=== PATIENT | male | born 1965 | race Caucasian/White ===

== ENCOUNTER 2017-04-11 03:23 | Emergency (ER) | payer MEDICARE, MEDICAID ==
--- NOTE | 2017-04-11 04:26 | ER Document Report ---
ED Extremity Problem, Upper - General Chief Complaint: Shoulder Pain Stated Complaint: BACK/SHOULDER PAIN Time Seen by Provider: 04/11/17 04:20 Mode of Arrival: Ambulatory Information source: Patient Notes: 51-year-old male presents to ED for pain in his left shoulder is chronic but has been getting worse for the last month. He states he has a history of shoulder surgery for a torn bicep and rotator cuff he also had cervical fusion 3. She has been on pain management for years who was kicked out because he had a positive marijuana test. States she is scheduled for an MRI of his shoulder and a nerve conduction study and was told that these were all counts were because he has a positive marijuana test. TRAVEL OUTSIDE OF THE [place] IN LAST 30 DAYS: No - HPI Patient complains to provider of: Left, Shoulder Onset: Other - Chronic worse for the last month Recent injury: No Quality of pain: Sharp, Stabbing Severity of pain: Moderate Pain Level: 4 Associated symptoms: Tingling, Other - The pain Exacerbated by: Movement Relieved by: Nothing Similar symptoms previously: Yes Recently seen / treated by doctor: Yes - Related Data Allergies/Adverse Reactions: No Known Allergies Allergy (Unverified 01/28/12 11:43) Past Medical History - General Information source: Patient - Social History Smoking Status: Current Every Day Smoker Cigarette use (# per day): Yes - Pack and half a day Chew tobacco use (# tins/day): No Smoking Education Provided: Yes Frequency of alcohol use: Occasional Drug Abuse: Marijuana Lives with: Spouse/Significant other Family History: Arthritis, CAD, COPD, DM, Hyperlipidemia, Hypertension, Malignancy Patient has suicidal ideation: No Patient has homicidal ideation: No - Past Medical History Cardiac Medical History: Reports: Hx Hypercholesterolemia, Hx Hypertension Pulmonary Medical History: Reports: Hx Asthma, Hx COPD EENT Medical History: Reports: None Neurological Medical History: Reports: None Endocrine Medical History: Reports: None Renal/ Medical History: Reports: None Malignancy Medical History: Reports None GI Medical History: Reports: Hx Gastroesophageal Reflux Disease Musculoskeltal Medical History: Reports Hx Arthritis, Reports Hx Musculoskeletal Trauma Skin Medical History: Reports None Psychiatric Medical History: Reports: Hx Anxiety, Hx Bipolar Disorder, Hx Depression Traumatic Medical History: Reports: Hx Fractures - Tib-fib and left thumb Infectious Medical History: Reports: None Past Surgical History: Reports: Hx Orthopedic Surgery - left wrist surgery, left knee torn miniscus, rotator cuff left and bicep te - Immunizations Immunizations up to date: No Hx Diphtheria, Pertussis, Tetanus Vaccination: Yes - 2011 Review of Systems - Review of Systems Constitutional: No symptoms reported EENT: No symptoms reported Cardiovascular: No symptoms reported Respiratory: No symptoms reported Gastrointestinal: No symptoms reported Genitourinary: No symptoms reported Male Genitourinary: No symptoms reported Musculoskeletal: Other - Left shoulder pain down to bicep Skin: No symptoms reported Hematologic/Lymphatic: No symptoms reported Neurological/Psychological: No symptoms reported -: Yes All other systems reviewed and negative Physical Exam - Vital signs Vitals: Temp Pulse Resp BP Pulse Ox 98.3 F 51 L 14 114/69 99 04/11/17 03:26 04/11/17 03:26 04/11/17 03:26 04/11/17 03:26 04/11/17 03:26 Interpretation: Normal - General General appearance: Appears well, Alert - HEENT Head: Normocephalic, Atraumatic Eyes: Normal Pupils: PERRL - Respiratory Respiratory status: No respiratory distress Chest status: Nontender Breath sounds: Normal Chest palpation: Normal - Cardiovascular Rhythm: Regular Heart sounds: Normal auscultation Murmur: No - Abdominal Inspection: Normal Distension: No distension Bowel sounds: Normal Tenderness: Nontender Organomegaly: No organomegaly - Back Back: Normal, Nontender - Extremities General upper extremity: Normal inspection, Normal color, Normal temperature General lower extremity: Normal inspection, Nontender, Normal color, Normal ROM , Normal temperature, Normal weight bearing. No: Lex's sign Shoulder: Tender, Limited ROM - Due to pain. No: Abrasion, Deformity, Dislocation, Ecchymosis, Instability, Laceration - Neurological Neuro grossly intact: Yes Cognition: Normal Orientation: AAOx4 [place] Coma Scale Eye Opening: Spontaneous [place] Coma Scale Verbal: Oriented [place] Coma Scale Motor: Obeys Commands [place] Coma Scale Total: 15 Speech: Normal Motor strength normal: LUE, RUE, LLE, RLE Sensory: Normal - Psychological Associated symptoms: Normal affect, Normal mood - Skin Skin Temperature: Warm Skin Moisture: Dry Skin Color: Normal Course - Re-evaluation Re-evalutation: 04/11/17 04:50 Discussed with patient the fact that we do not do chronic pain management, we do not prescribe narcotics for chronic pain, use of anti-inflammatories and use of ultram. - Vital Signs Vital signs: Temp Pulse Resp BP Pulse Ox 98.3 F 51 L 14 114/69 99 04/11/17 03:26 04/11/17 03:26 04/11/17 03:26 04/11/17 03:04/11/17 03:26 Discharge - Discharge Clinical Impression: Shoulder pain, left Qualifiers: Chronicity: chronic Qualified Code(s): M25.512 - Pain in left shoulder Instructions: Family Physicians / Practices Additional Instructions: You were seen today for shoulder pain in your left shoulder. You stated this is chronic pain that has been getting worse for a month. A local primary doctor and a orthopedic doctor. Chronic Pain Control Stress, inactivity, and depression make pain more severe regardless of the cause of the pain. Stress and poor physical condition can cause pain such as headaches and backache. Relaxation: Rest in a quiet place with your eyes closed for 20 minutes twice daily. Concentrate on a pleasant image, or simply "feel" your breathing. Clear your mind. Stress management: Deal with your "stressors." Either take action, or eliminate the stressor from your life. Don't let things hang over you. Accept those things you can't change. Nutrition: Eat small, balanced meals -- don't skip, don't overeat. Meals should be high-carbohydrate, low-sugar, low-fat. Exercise: Exercise helps painful conditions and eases stress. Get 30 minutes of moderate exercise, five days a week. Do an activity that does not flare your pain. Precautions: Pain which continues to disrupt daily activities, or which changes in nature, requires a medical evaluation. Pain Clinic referral is available. We do not manage chronic pain in the Emergency Department. We will try to appropriately help you through an acute flare of your chronic painful condition , but for on-going chronic pain that does not improve, you will need to see your private doctor or ornamental painter. We do not provide repeated medication management of chronic painful conditions. If you wish, we can provide the name of local pain management physicians. Anti-Inflammatory Medication You have received a prescription for an antiinflammatory agent. This is an excellent, safe drug for pain control. In addition, it has potent antiinflammatory effects which are beneficial, especially in the treatment of injuries, arthritis, or tendonitis. It's best to take this medicine with food. Persons with ulcer disease or allergy to aspirin should notify their physician of this before taking this drug. Take the medication exactly as prescribed. Don't take additional doses unless instructed to do so by your doctor. If you develop wheezing, shortness of breath, hives, faintness, stomach pain, vomiting, or dark black stools, return for re-evaluation at once. Ultram Ultram is an excellent drug for pain relief. It is not a narcotic, but it works in a similar way. Ultram can take up to two hours for full effect. Although not addicting, Ultram is best avoided in patients with a history of drug abuse. Ultram should not be used with alcohol, sleeping pills, or narcotics. If you're prone to seizures, Ultram can make you more likely to have a seizure. Ultram can be hazardous when combined with MAO-inhibitor antidepressants (such as Nardil or Parnate). Be sure your doctor is aware of all medicines you are taking. Persons with severe liver or kidney disease should increase the time between doses of Ultram. Discuss this with your doctor if you're uncertain. Side effects of Ultram can include dizziness, nausea, constipation, sleepiness, and itching. (These side effects are also seen with narcotic pain medicines.) Please call your doctor if you have other disturbing effects. FOLLOW-UP CARE: If you have been referred to a physician for follow-up care, call the physician s office for an appointment as you were instructed or within the next two days. If you experience worsening or a significant change in your symptoms, notify the physician immediately or return to the Emergency Department at any time for re-evaluation. Prescriptions: Naproxen 500 mg PO BIDP PRN #14 tablet PRN Reason: Tramadol HCl [Ultram] 50 mg PO BIDP PRN #10 tablet PRN Reason: Forms: Smoking Cessation Education Referrals: ABRAHAN CARO MD [ACTIVE STAFF] - Follow up as needed
[2017-04-11 04:48] VITALS: BP 108/60
== END 2017-04-11 04:53 | disposition home or self-care (01) ==
LOC: ER 03:23
DX: M25.512 Pain in left shoulder (principal); M54.9 Dorsalgia, unspecified; G89.29 Other chronic pain; F17.210 Nicotine dependence, cigarettes, uncomplicated
CPT/HCPCS: 99283

== ENCOUNTER 2018-08-01 01:25 | Emergency (ER) | payer MEDICARE, MEDICAID ==
[2018-08-01] MEDS ORDERED: NORMAL SALINE 1000 ML 1,000 ML IV ONE (02:45)
--- NOTE | 2018-08-01 02:45 | ER Document Report ---
ED General <HUSSEIN MANRIQUEZ E - Last Filed: 08/01/18 09:59> - General TRAVEL OUTSIDE OF THE [place] IN LAST 30 DAYS: No <MARIA DE JESUS OLMSTEAD - Last Filed: 08/02/18 10:56> - General Chief Complaint: Vomiting Stated Complaint: WEAKNESS Time Seen by Provider: 08/01/18 02:35 Notes: Patient is a 52-year-old male that presents to the emergency department for chief complaint of right upper quadrant pain, nausea and vomiting. Patient reports she has been having these symptoms for approximately 2 weeks now, and having significant right upper quadrant pain, that comes and goes, at its worst , he rates it as a 9 out of 10, describes as a sharp stabbing sensation in the right upper quadrant, and always has a present dull ache. He is never had anything like this before. Denies history of liver disease. He denies any alcohol use either. He states that he is been taking intermittent Tylenol for the pain, states no more than 2 or 3 doses a day. He also noticed that his skin was turning yellow, and his urine was getting much darker. Past Medical History: Chronic muscular skeletal pain Past Surgical History: Denies surgical history Social History: Admits to smoking cigarettes daily, denies alcohol or illicit drug use. Family History: Reviewed and noncontributory for presenting illness Allergies: Reviewed, see documented allergy list. REVIEW OF SYSTEMS: Unless otherwise stated in this report the patient's positive and negative responses for review of systems for constitutional, eyes, ENT, cardiovascular, respiratory, gastrointestinal, neurological, genitourinary, musculoskeletal, and integumentary systems and related systems to the presenting problem are either as stated in the HPI or were not pertinent or were negative for the symptoms and/or complaints related to the presenting medical problem. PHYSICAL EXAMINATION: Vital signs reviewed, nursing noted reviewed. GENERAL: Well-appearing, well-nourished and in no acute distress. HEAD: Atraumatic, normocephalic. EYES: Eyes appear normal, extraocular movements intact, sclera icterus, conjunctiva are normal. ENT: nares patent, oropharynx clear without exudates. Moist mucous membranes. NECK: Normal range of motion, supple without lymphadenopathy LUNGS: Breath sounds clear to auscultation bilaterally and equal. No wheezes rales or rhonchi. HEART: Regular rate and rhythm without murmurs ABDOMEN: Soft, right upper quadrant tenderness with palpation, hepatomegaly palpated, normoactive bowel sounds. No rebound, guarding, or rigidity. No masses appreciated. EXTREMITIES: Nontender, good range of motion, no pitting or edema. NEUROLOGICAL: No focal neurological deficits. Moves all extremities spontaneously Motor and sensory grossly intact on exam. PSYCH: Normal mood, normal affect. SKIN: Warm, Dry, normal turgor, skin is jaundiced (MARIA DE JESUS OLMSTEAD) - Related Data Allergies/Adverse Reactions: No Known Allergies Allergy (Unverified 01/28/12 11:43) Past Medical History - Social History Smoking Status: Current Every Day Smoker Family History: Arthritis, CAD, COPD, DM, Hyperlipidemia, Hypertension, Malignancy - Past Medical History Cardiac Medical History: Reports: Hx Hypercholesterolemia, Hx Hypertension Pulmonary Medical History: Reports: Hx Asthma, Hx COPD Renal/ Medical History: Denies: Hx Peritoneal Dialysis GI Medical History: Reports: Hx Gastroesophageal Reflux Disease Musculoskeletal Medical History: Reports Hx Arthritis, Reports Hx Musculoskeletal Trauma Psychiatric Medical History: Reports: Hx Anxiety, Hx Bipolar Disorder, Hx Depression Traumatic Medical History: Reports: Hx Fractures - Tib-fib and left thumb Past Surgical History: Reports: Hx Orthopedic Surgery - left wrist surgery, left knee torn miniscus, rotator cuff left and bicep te - Immunizations Immunizations up to date: No Hx Diphtheria, Pertussis, Tetanus Vaccination: Yes - 2011 <MARIA DE JESUS OLMSTEAD - Last Filed: 08/02/18 10:56> - Vital signs Vitals: Temp Pulse Resp BP Pulse Ox 98.4 F 82 18 124/107 H 98 08/01/18 01:26 08/01/18 01:26 08/01/18 01:26 08/01/18 01:26 08/01/18 01:26 Course - Laboratory Result Diagrams: 08/01/18 03:28 08/01/18 03:28 <HUSSEIN MANRIQUEZ - Last Filed: 08/01/18 09:59> - Laboratory Result Diagrams: 08/01/18 03:28 08/01/18 03:28 <MARIA DE JESUS OLMSTEAD - Last Filed: 08/02/18 10:56> - Re-evaluation Re-evalutation: 08/01/18 09:59 Patient reevaluated upon transfer team arrival. He is alert, awake and ambulated to the stretcher independently. Vital signs stable. Patient stable for transfer. (HUSSEIN MANRIQUEZ) Patient seen and examined vital signs reviewed. Laboratory data and imaging were ordered as appropriate for the patient's presenting symptoms and complaint, with consideration of any critical or life threatening conditions that may be associated with their obtained history and exam as noted above. Patient was treated with IV fluids and Zofran Results were reviewed when available and demonstrated markedly elevated bilirubin, greater than 12, and severe transaminitis, concerning for acute hepatic failure, and acute hepatitis, alcohol level negative, Tylenol level negative, CT imaging was negative for any obstructive lesions The patient was re-evaluated and was stable Evaluation was most consistent with acute liver failure, my suspicion is this is secondary to viral hepatitis, likely hepatitis C, that was previously undiagnosed, however cannot confirm, will send off hepatitis panel Results were discussed with the patient at this point after careful consideration I feel that that [facility] liver failure. This was discussed with the patient that it is in the best interest for their care to be transferred, the risks and benefits of transfer were discussed, including but not limited to clinical deterioration during transport, respiratory distress, and potential for traumatic injuries. Patient agreed with this plan of care. After discussing the [facility], they felt that the patient was too complicated and may be a potential liver transplant candidate, recommended transferring to a larger tertiary facility, with transplant capabilities, I then placed a call to [facility], and spoke with Dr. Jarek Douglas, in the emergency department who accepted the patient to be transferred to their facility. I reviewed this with the patient, and he was agreeable to this transfer. *Note is created using voice recognition software and may contain spelling, syntax or grammatical errors.* Laboratory 08/01/18 08/01/18 08/01/18 03:28 03:28 03:28 WBC 4.6 RBC 4.30 L Hgb 13.8 Hct 39.2 MCV 91 MCH 32.1 MCHC 35.2 RDW 14.4 H Plt Count 219 Seg Neutrophils % 50.7 Lymphocytes % 30.3 Monocytes % 14.7 H Eosinophils % 2.5 Basophils % 1.8 Absolute Neutrophils 2.3 Absolute Lymphocytes 1.4 Absolute Monocytes 0.7 Absolute Eosinophils 0.1 Absolute Basophils 0.1 Toxic Granulation 1+ Clumped Platelets PRESENT Large Platelets PRESENT Platelet Comment ADEQUATE Anisocytosis SLIGHT Pappenheimer Bodies PRESENT Target Cells SLIGHT PT INR APTT Sodium 141.0 Potassium 3.5 L Chloride 104 Carbon Dioxide 27 Anion Gap 10 BUN 14 Creatinine 0.69 Est GFR ( Amer) > 60 Est GFR (Non-Af Amer) > 60 Glucose 129 H Calcium 8.5 Total Bilirubin 12.3 H Direct Bilirubin 10.6 H Neonat Total Bilirubin Not Reportable Neonat Direct Bilirubin Not Reportable Neonat Indirect Bili Not Reportable AST 1119 H ALT 1434 H Alkaline Phosphatase 375 H Total Protein 7.2 Albumin 3.4 L Lipase 72.2 Urine Color Urine Appearance Urine pH Ur Specific [place] Urine Protein Urine Glucose (UA) Urine Ketones Urine Blood Urine Nitrite Urine Bilirubin Urine Urobilinogen Ur Leukocyte Esterase Urine WBC (Auto) Urine RBC (Auto) Urine Mucus (Auto) Urine Ascorbic Acid Acetaminophen < 10 L Serum Alcohol < 10 08/01/18 08/01/18 03:28 03:37 WBC RBC Hgb Hct MCV MCH MCHC RDW Plt Count Seg Neutrophils % Lymphocytes % Monocytes % Eosinophils % Basophils % Absolute Neutrophils Absolute Lymphocytes Absolute Monocytes Absolute Eosinophils Absolute Basophils Toxic Granulation Clumped Platelets Large Platelets Platelet Comment Anisocytosis Pappenheimer Bodies Target Cells PT 14.3 INR 1.06 APTT 36.0 H Sodium Potassium Chloride Carbon Dioxide Anion Gap BUN Creatinine Est GFR ( Amer) Est GFR (Non-Af Amer) Glucose Calcium Total Bilirubin Direct Bilirubin Neonat Total Bilirubin Neonat Direct Bilirubin Neonat Indirect Bili AST ALT Alkaline Phosphatase Total Protein Albumin Lipase Urine Color SHADE Urine Appearance CLEAR Urine pH 6.0 Ur Specific [place] 1.019 Urine Protein 30 H Urine Glucose (UA) NEGATIVE Urine Ketones NEGATIVE Urine Blood NEGATIVE Urine Nitrite NEGATIVE Urine Bilirubin MODERATE H Urine Urobilinogen 4.0 H Ur Leukocyte Esterase NEGATIVE Urine WBC (Auto) 1 Urine RBC (Auto) 0 Urine Mucus (Auto) RARE Urine Ascorbic Acid NEGATIVE Acetaminophen Serum Alcohol Abdomen/Pelvis CT 08/01/18 02:45 IMPRESSION: 1. There is a 0.4 cm calculus in the left renal pelvis near the left UPJ. This may represent imminent passing of this calculus. No current hydronephrosis or hydroureter. 2. Bilateral nonobstructing nephrolithiasis. 3. The gallbladder is decompressed. Possible pericholecystic fluid. No calcified gallstones identified. Correlation for right upper quadrant ultrasound may be beneficial. This exam was performed according to our departmental dose-optimization program, which includes automated exposure control, adjustment of the mA and/or kV according to patient size and/or use of iterative reconstruction technique. (MARIA DE JESUS OLMSTEAD) - Vital Signs Vital signs: Temp Pulse Resp BP Pulse Ox 98.6 F 82 16 118/77 100 08/01/18 09:47 08/01/18 01:26 08/01/18 09:47 08/01/18 09:47 08/01/18 09:46 - Laboratory Laboratory results interpreted by me: 08/01/18 08/01/18 08/01/18 03:28 03:28 03:28 RBC 4.30 L RDW 14.4 H Monocytes % 14.7 H APTT Potassium 3.5 L Glucose 129 H Total Bilirubin 12.3 H Direct Bilirubin 10.6 H AST 1119 H ALT 1434 H Alkaline Phosphatase 375 H Albumin 3.4 L Urine Protein Urine Bilirubin Urine Urobilinogen Acetaminophen < 10 L Hepatitis A IgM Ab 08/01/18 08/01/18 08/01/18 03:28 03:37 06:36 RBC RDW Monocytes % APTT 36.0 H Potassium Glucose Total Bilirubin Direct Bilirubin AST ALT Alkaline Phosphatase Albumin Urine Protein 30 H Urine Bilirubin MODERATE H Urine Urobilinogen 4.0 H Acetaminophen Hepatitis A IgM Ab Positive H - EKG Interpretation by Me Additional EKG results interpreted by me: EKG demonstrates sinus rhythm with a ventricular rate of 60 bpm, normal axis, normal intervals, no evidence of acute ischemia on this EKG, this is compared with prior EKG from 05/17/2016, without significant change. (MARIA DE JESUS OLMSTEAD) Critical Care Note <HUSSEIN MANRIQUEZ - Last Filed: 08/01/18 09:59> - Critical Care Note Total time excluding time spent on procedures (mins): 35 <MARIA DE JESUS OLMSTEAD - Last Filed: 08/02/18 10:56> - Critical Care Note Comments: Critical care time 35 minutes exclusive from separate billable procedures for a patient requiring complex medical decision making, and high potential for clinical deterioration. Time spent obtaining history from patient or surrogate, discussions with consultants, development of treatment plan with patient or surrogate, evaluation of patient's response to treatment, examination of patient , ordering and performing treatments and interventions, ordering and review of laboratory studies, re-evaluation of patient's condition, ordering and review of radiographic studies and review of old charts (MARIA DE JESUS OLMSTEAD) Discharge <HUSSEIN MANRIQUEZ - Last Filed: 08/01/18 09:59> <MARIA DE JESUS OLMSTEAD - Last Filed: 08/02/18 10:56> - Discharge Clinical Impression: Hyperbilirubinemia, Transaminitis Acute liver failure Qualifiers: Hepatic coma status: without hepatic coma Qualified Code(s): K72.00 - Acute and subacute hepatic failure without coma Condition: Fair Disposition: [place]
[2018-08-01] MEDS ORDERED: ONDANSETRON HCL INJ/PF 4 MG/2 ML SDV IV ONE (02:46)
[2018-08-01 03:41] LABS: ABSOLUTE BASOPHILS # (AUTO) 0.1 10^3/uL (0.0-0.2); ABSOLUTE EOSINOPHILS # (AUTO) 0.1 10^3/uL (0.0-0.6); ABSOLUTE LYMPHOCYTES (AUTO) 1.4 10^3/uL (0.5-4.7); ABSOLUTE MONOCYTES (AUTO) 0.7 10^3/uL (0.1-1.4); ABSOLUTE NEUT (AUTO) 2.3 10^3/uL (1.7-8.2); BASOPHILS % (AUTO) 1.8 % (0-2); EOSINOPHILS % (AUTO) 2.5 % (0-6); HEMATOCRIT 39.2 % (37.9-51.0); HEMOGLOBIN 13.8 g/dL (13.5-17.0); LYMPHOCYTES % (AUTO) 30.3 % (13-45); MEAN CORPUSCULAR HEMOGLOBIN 32.1 pg (27.0-33.4); MEAN CORPUSCULAR HGB CONC 35.2 g/dL (32.0-36.0); MEAN CORPUSCULAR VOLUME 91 fl (80-97); MONOCYTES % (AUTO) 14.7 % (3-13); PLATELET COUNT 219 10^3/uL (150-450); RED CELL DISTRIBUTION WIDTH 14.4 % (11.5-14.0); SEGMENTED NEUTROPHILS % (AUTO) 50.7 % (42-78); TOTAL CELLS COUNTED % (AUTO) 100 %; WHITE BLOOD COUNT 4.6 10^3/uL (4.0-10.5)
[2018-08-01 03:53] LABS: APPEARANCE,URINE CLEAR; BILIRUBIN,URINE MODERATE (NEGATIVE); COLOR,URINE AMBER; GLUCOSE, URINE NEGATIVE (NEGATIVE); KETONES,URINE NEGATIVE (NEGATIVE); LEUKOCYTE ESTERASE,URINE NEGATIVE (NEGATIVE); NITRITE,URINE NEGATIVE (NEGATIVE); PROTEIN,URINE 30 mg/dL (NEGATIVE); URINE SPECIFIC GRAVITY 1.019
[2018-08-01 03:55] LABS: ALBUMIN 3.4 g/dL (3.5-5.0); ALKALINE PHOSPHATASE 375 U/L (38-126); ANION GAP 10 (5-19); BILIRUBIN,DIRECT 10.6 mg/dL (0.0-0.4); BILIRUBIN,TOTAL 12.3 mg/dL (0.2-1.3); BLOOD UREA NITROGEN 14 mg/dL (7-20); CALCIUM 8.5 mg/dL (8.4-10.2); CARBON DIOXIDE 27 mmol/L (22-30); CHLORIDE 104 mmol/L (98-107); GLUCOSE 129 mg/dL (75-110); LIPASE 72.2 U/L (23-300); POTASSIUM 3.5 mmol/L (3.6-5.0); TOTAL PROTEIN 7.2 g/dL (6.3-8.2)
[2018-08-01 04:06] LABS: ALANINE AMINOTRANSFERASE 1434 U/L (21-72); ASPARTATE AMINO TRANSFERASE 1119 U/L (17-59)
[2018-08-01 04:11] LABS: ACETAMINOPHEN < 10 ug/mL (10-30); ALCOHOL < 10 mg/dL (NONE DETECTED); ANISOCYTOSIS SLIGHT; PAPPENHEIMER BODIES PRESENT; TARGET CELLS SLIGHT; TOXIC GRANULATION 1+
[2018-08-01 04:12] LABS: PLATELET CLUMPS PRESENT; PLATELET COMMENT ADEQUATE; PLATELET LARGE PRESENT
[2018-08-01 04:23] LABS: INTERNATIONAL RATION (INR) 1.06; PROTHROMBIN TIME 14.3 SEC (11.4-15.4)
--- NOTE | 2018-08-01 05:21 | RADIOLOGY REPORT (SQ) ---
EXAM DESCRIPTION: CT ABDOMEN PELVIS WITH IV CONTRAST COMPLETED DATE/TME: 08/01/2018 02:45 CLINICAL HISTORY: ruq abdominal pain, jaundice COMPARISON: None Available. TECHNIQUE: CT of the abdomen and pelvis performed following IV administration of 74 mL of Omnipaque 350. DLP: 533.72 mGycm FINDINGS: Lung Bases: The visualized lung bases are clear. Bones: No destructive bone lesions identified. Degenerative change of the spine. Abdomen: Liver: The liver has normal size and density. No intrahepatic mass or biliary dilatation. The common bile duct is not definitely dilated. Gallbladder: The gallbladder is decompressed. No calcified gallstones identified. Possible pericholecystic fluid. Spleen, Pancreas, and Adrenal Glands: The spleen, pancreas, and adrenal glands are unremarkable. Kidneys: Bilateral punctate nonobstructing renal calculi. There is a 0.4 cm calculus in the left renal pelvis near the UPJ. No solid masses identified. Vasculature: Aortoiliac atherosclerosis. IVC is unremarkable. The portal vein is patent. The proximal visceral and renal arteries are patent. Stomach: The stomach and duodenum have normal course. Other: No free intraperitoneal air. No free fluid or lymphadenopathy. Pelvis: Bladder: Urinary bladder is unremarkable. Bowel: No dilated loops of large or small bowel. Appendix: Normal appendix. Pelvis: Prostate is not enlarged. IMPRESSION: 1. There is a 0.4 cm calculus in the left renal pelvis near the left UPJ. This may represent imminent passing of this calculus. No current hydronephrosis or hydroureter. 2. Bilateral nonobstructing nephrolithiasis. 3. The gallbladder is decompressed. Possible pericholecystic fluid. No calcified gallstones identified. Correlation for right upper quadrant ultrasound may be beneficial. This exam was performed according to our departmental dose-optimization program, which includes automated exposure control, adjustment of the mA and/or kV according to patient size and/or use of iterative reconstruction technique.
[2018-08-01 07:32] LABS: URINE AMPHETAMINES SCREEN NEGATIVE; URINE BARBITURATES SCREEN NEGATIVE; URINE BENZODIAZEPINES SCREEN UNCONFIRMED POSITIVE; URINE COCAINE SCREEN NEGATIVE; URINE MARIJUANA (THC) SCREEN UNCONFIRMED POSITIVE; URINE METHADONE SCREEN NEGATIVE; URINE PHENCYCLIDINE SCREEN NEGATIVE
[2018-08-01 09:59] VITALS: BP 118/77
--- NOTE | 2018-08-01 10:36 | EKG REPORT ---
SEVERITY:- NORMAL ECG - SINUS RHYTHM : Confirmed by: Flori Bullard MD 01-Aug-2018 10:36:10
[2018-08-02 07:41] LABS: HEPATITIS B CORE AB IGM Negative (Negative); HEPATITS B SURFACE ANTIGEN Negative (Negative)
[2018-08-02 08:34] LABS: HEPATITIS A AB IGM Positive (Negative); HEPATITIS C VIRUS ANTIBODY <0.1 s/co ratio (0.0-0.9)
== END 2018-08-01 09:59 | disposition short-term general hospital (02) ==
LOC: ER 01:25
DX: K72.00 Acute and subacute hepatic failure without coma (principal); E80.6 Other disorders of bilirubin metabolism; R74.0 Nonspecific elevation of levels of transaminase and lactic acid dehydrogenase [LDH]; R10.11 Right upper quadrant pain; R11.2 Nausea with vomiting, unspecified; F17.210 Nicotine dependence, cigarettes, uncomplicated; I10 Essential (primary) hypertension; J44.9 Chronic obstructive pulmonary disease, unspecified
CPT/HCPCS: 93005; 99291; 96361; 96374; 36415; 80307 ×3; 83690; 85025; 85610; 85730; 80053; 81001; 80074; 74177; 93010; J2405; J7030

== ENCOUNTER 2018-10-20 04:29 | Emergency (ER) | payer MEDICARE, MEDICAID ==
[2018-10-20] MEDS ORDERED: HYDROMORPHONE HCL INJ/PF 2 MG/ML AMPULE IV ONE (05:18)
--- NOTE | 2018-10-20 05:43 | ER Document Report ---
ED Hip Pain/Injury - General Mode of Arrival: Ambulatory Information source: Patient TRAVEL OUTSIDE OF THE [place] IN LAST 30 DAYS: No - General Chief Complaint: Hip Injury Stated Complaint: HIP INJURY Time Seen by Provider: 10/20/18 05:18 Notes: 53-year-old male who presents to the emergency department today with complaints of right hip pain. Patient states he was at [facility] and he thinks he spilled a bottle of oil and he did not notice it and slipped on it when walking away. Patient states he landed on his right hip. Patient states he has been able to walk but he has to hunch over and has "excruciating pain". (CARROL MIDDLETON) - Related Data Allergies/Adverse Reactions: No Known Allergies Allergy (Unverified 01/28/12 11:43) Past Medical History - General Information source: Patient - Social History Smoking Status: Current Every Day Smoker Cigarette use (# per day): Yes Chew tobacco use (# tins/day): No Frequency of alcohol use: Occasional Drug Abuse: Marijuana Lives with: Family Family History: Arthritis, CAD, COPD, DM, Hyperlipidemia, Hypertension, Malignancy Patient has suicidal ideation: No Patient has homicidal ideation: No - Past Medical History Cardiac Medical History: Reports: Hx Hypercholesterolemia, Hx Hypertension Pulmonary Medical History: Reports: Hx Asthma, Hx COPD GI Medical History: Reports: Hx Gastroesophageal Reflux Disease Musculoskeletal Medical History: Reports Hx Arthritis, Reports Hx Musculoskeletal Trauma Psychiatric Medical History: Reports: Hx Anxiety, Hx Bipolar Disorder, Hx Depression Traumatic Medical History: Reports: Hx Fractures - Tib-fib and left thumb Past Surgical History: Reports: Hx Orthopedic Surgery - left wrist surgery, left knee torn miniscus, rotator cuff left and bicep te - Immunizations Immunizations up to date: No Hx Diphtheria, Pertussis, Tetanus Vaccination: Yes - 2011 Review of Systems - Review of Systems Constitutional: No symptoms reported EENT: No symptoms reported Cardiovascular: No symptoms reported Respiratory: No symptoms reported Gastrointestinal: No symptoms reported Genitourinary: No symptoms reported Male Genitourinary: No symptoms reported Musculoskeletal: See HPI, Joint pain - right hip pain Skin: No symptoms reported Hematologic/Lymphatic: No symptoms reported Neurological/Psychological: No symptoms reported -: Yes All other systems reviewed and negative Physical Exam - Vital signs Vitals: Temp Pulse Resp BP Pulse Ox 97.3 F 84 18 139/77 H 99 10/20/18 04:33 10/20/18 04:33 10/20/18 04:33 10/20/18 04:33 10/20/18 04:33 - Notes Notes: PHYSICAL EXAM GENERAL: Alert, interacts well. Appears uncomfortable. HEAD: Normocephalic, atraumatic. EYES: Pupils equal, round, and reactive to light. Extraocular movements intact. ENT: Oral mucosa moist, tongue midline. NECK: Full range of motion. Supple. Trachea midline. LUNGS: No respiratory distress. HEART: Regular rate and rhythm. EXTREMITIES: No edema, radial and dorsalis pedis pulses 2/4 bilaterally. No cyanosis. Some pain with external logroll of right leg. tenderness with palpation over the right buttock without swelling or deformity. NEUROLOGICAL: Alert and oriented x3. Normal speech. PSYCH: Normal affect, normal mood. SKIN: Warm, dry, normal turgor. No rashes or lesions noted. (CARROL MIDDLETON) Course - Re-evaluation Re-evalutation: 10/20/18 06:47 X-ray was negative, no evidence of fracture dislocation. No indication for splinting. Patient was able to ambulate back without difficulty. Patient will be started on NSAIDs and discharged home. (ROCCO AGUILERA) - Vital Signs Vital signs: Temp Pulse Resp BP Pulse Ox 97.3 F 84 18 139/77 H 99 10/20/18 04:33 10/20/18 04:33 10/20/18 04:33 10/20/18 04:33 10/20/18 04:33 Discharge - Discharge Clinical Impression: Contusion Qualifiers: Encounter type: initial encounter Contusion area: pelvic area Qualified Code(s): S30.0XXA - Contusion of lower back and pelvis, initial encounter Condition: Stable Disposition: HOME, SELF-CARE Additional Instructions: Contusion Your injury has resulted in a contusion -- a crushing of the deep tissues. No injury to important structures was detected during the physician's exam. Contusions vary in the amount of pain they cause, and in the length of time required for healing. Typically, the area will become bruised, and will remain painful to touch for two or three weeks. However, most patients are back to working and playing within a few days. After the initial period of rest and cold-packs, your symptoms (together with the doctor's recommendations) will determine how rapidly you can get back to full activity. Usually this means "do what feels okay, but don't do things that hurt." If re-examination was recommended, it's important to follow up as instructed. Call the doctor or return any time if pain increases, if swelling becomes severe, if you develop numbness or weakness in an injured extremity, or if any other alarming symptoms occur. Forms: Return to Work Scribe Attestation: 10/20/18 07:47 I personally performed the services described in the documentation, reviewed and edited the documentation which was dictated to the scribe in my presence, and it accurately records my words and actions. (ROCCO AGUILERA) Scribe Documentation - Scribe Written by Reagan:: Reagan Dunham, 10/20/2018 0543 acting as scribe for :: Alberto
--- NOTE | 2018-10-20 06:15 | RADIOLOGY REPORT (SQ) ---
EXAM DESCRIPTION: XR HIP 2 OR MORE VIEWS COMPLETED DATE/TME: 10/20/2018 04:42 CLINICAL HISTORY: Pain 53 years Male, [facility] in oil [facility] and fell on right hip COMPARISON: None. Findings: Bones, joints, and soft tissues of the RIGHT XR HIP 2 VIEWS appear intact. IMPRESSION: No acute findings.
[2018-10-20 07:50] VITALS: BP 136/78
== END 2018-10-20 07:50 | disposition home or self-care (01) ==
LOC: ER 04:29
DX: S30.0XXA Contusion of lower back and pelvis, initial encounter (principal); M25.551 Pain in right hip; W01.0XXA Fall on same level from slipping, tripping and stumbling without subsequent striking against object, initial encounter; Y92.512 Supermarket, store or market as the place of occurrence of the external cause; F17.210 Nicotine dependence, cigarettes, uncomplicated; F12.10 Cannabis abuse, uncomplicated; I10 Essential (primary) hypertension; J45.909 Unspecified asthma, uncomplicated
CPT/HCPCS: 99283; 96374; 73502; J1170

== ENCOUNTER 2019-01-29 06:20 | Emergency (ER) | payer MEDICARE, MEDICAID ==
--- NOTE | 2019-01-29 07:02 | ER Document Report ---
ED Medical Screen (RME) - General Chief Complaint: Foreign Body Stated Complaint: LEFT THUMB PAIN Time Seen by Provider: 01/29/19 06:54 Notes: 53-year-old male with chief complaint of left thumb pain and swelling. States it has been swelling for the past 1.5 days. He admits that he thinks he got a piece of metal stuck in it, he tried to did get out with fingernail clippers, afterwards it started becoming painful and swollen. He denies fever/chills. He denies diabetes. He reports his tetanus is up-to-date within the past year. He denies other complaints. TRAVEL OUTSIDE OF THE [place] IN LAST 30 DAYS: No - Related Data Allergies/Adverse Reactions: No Known Allergies Allergy (Unverified 01/28/12 11:43) Past Medical History - Social History Frequency of alcohol use: Social Drug Abuse: Marijuana - Past Medical History Cardiac Medical History: Reports: Hx Hypercholesterolemia, Hx Hypertension Pulmonary Medical History: Reports: Hx Asthma, Hx COPD Renal/ Medical History: Denies: Hx Peritoneal Dialysis GI Medical History: Reports: Hx Gastroesophageal Reflux Disease Musculoskeltal Medical History: Reports Hx Arthritis, Reports Hx Musculoskeletal Trauma Psychiatric Medical History: Reports: Hx Anxiety, Hx Bipolar Disorder, Hx Depression Traumatic Medical History: Reports: Hx Fractures - Tib-fib and left thumb Past Surgical History: Reports: Hx Orthopedic Surgery - left wrist surgery, left knee torn miniscus, rotator cuff left and bicep te - Immunizations Immunizations up to date: No Hx Diphtheria, Pertussis, Tetanus Vaccination: Yes - 2011 Physical Exam - Vital signs Vitals: Temp Pulse Resp BP Pulse Ox 97.4 F 63 16 113/62 98 01/29/19 06:46 01/29/19 06:46 01/29/19 06:46 01/29/19 06:46 01/29/19 06:46 - Extremities General upper extremity: Other - Erythema and tenderness to the left thumb. Able to bend at the MCP joint but unable to bend at the DIP. Some soft tissue swelling. There is a wound over the finger pad which is healing. Remaining exam is unremarkable. Course - Re-evaluation Re-evalutation: I have greeted and performed a rapid initial assessment of this patient. A comprehensive ED assessment and evaluation of the patient, analysis of test results and completion of the medical decision making process will be conducted by additional ED providers. - Vital Signs Vital signs: Temp Pulse Resp BP Pulse Ox 97.4 F 63 16 113/62 98 01/29/19 06:46 01/29/19 06:46 01/29/19 06:46 01/29/19 06:46 01/29/19 06:46
--- NOTE | 2019-01-29 07:38 | RADIOLOGY REPORT (SQ) ---
Left thumb three view on 01/29/2019 at 7:12 AM CLINICAL INDICATION: Swelling, pain, foreign body COMPARISON: None FINDINGS: There is plate and screw fixation of an old healed fracture of the first metacarpal. There is a 4 mm radiopaque foreign body in the palmar soft tissues adjacent to the first distal phalanx. There are no acute fractures. Visualized joints are well aligned. No other bony abnormality is noted. IMPRESSION: Radiopaque foreign body in the thumb soft tissues as above.
[2019-01-29] MEDS ORDERED: LIDOCAINE 1% INJ-PF (10 MG/ML) 30 ML SDV INJ ONE (07:40)
[2019-01-29] MEDS ORDERED: KETOROLAC TROMETHAMINE INJ/PF 30 MG/1 ML SDV IV ONE (07:46)
[2019-01-29 07:59] LABS: ABSOLUTE BASOPHILS # (AUTO) 0.1 10^3/uL (0.0-0.2); ABSOLUTE EOSINOPHILS # (AUTO) 0.1 10^3/uL (0.0-0.6); ABSOLUTE MONOCYTES (AUTO) 0.6 10^3/uL (0.1-1.4); ABSOLUTE NEUT (AUTO) 4.3 10^3/uL (1.7-8.2); BASOPHILS % (AUTO) 1.1 % (0-2); EOSINOPHILS % (AUTO) 1.9 % (0-6); HEMOGLOBIN 14.3 g/dL (13.5-17.0); MEAN CORPUSCULAR HEMOGLOBIN 33.2 pg (27.0-33.4); MEAN CORPUSCULAR HGB CONC 34.9 g/dL (32.0-36.0); MEAN CORPUSCULAR VOLUME 95 fl (80-97); MONOCYTES % (AUTO) 8.6 % (3-13); PLATELET COUNT 228 10^3/uL (150-450); RED CELL DISTRIBUTION WIDTH 13.5 % (11.5-14.0); SEGMENTED NEUTROPHILS % (AUTO) 60.4 % (42-78); TOTAL CELLS COUNTED % (AUTO) 100 %; WHITE BLOOD COUNT 7.1 10^3/uL (4.0-10.5)
--- NOTE | 2019-01-29 08:00 | PDOC CONSULTATION ---
History of Present Illness Patient complains of: Left thumb pain History of Present Illness: MARY JANE CARY is a 53 year old male who sustained a puncture wound to the volar aspect of his thumb with a retained metal fragment. Patient has increasing redness and swelling along the thumb tip. Also recently began having discomfort along his CMC joint. Patient states he has had previous injury requiring open reduction internal fixation. Prior to today's presentation was having no discomfort in his thumb. Denies fever chills or sweats. Denies numbness or tingling. Pain 3/5 Past Medical History Cardiac Medical History: Reports: Hyperlipidema, Hypertension Pulmonary Medical History: Reports: Asthma, Chronic Obstructive Pulmonary Disease (COPD) GI Medical History: Reports: Gastroesophageal Reflux Disease Musculoskeltal Medical History: Reports: Arthritis Psychiatric Medical History: Reports: Bipolar Disorder, Depression Past Surgical History Past Surgical History: Reports: Orthopedic Surgery - left wrist surgery, left knee torn miniscus, rotator cuff left and bicep te Social History Smoking Status: Current Every Day Smoker Frequency of Alcohol Use: Rare Drugs: Cocaine, Marijuana Family History Family History: Arthritis, CAD, COPD, DM, Hyperlipidemia, Hypertension, Malignancy Parental Family History Reviewed: No Children Family History Reviewed: No Sibling(s) Family History Reviewed.: No Medication/Allergy Home Medications: Dronabinol [Marinol] 10 mg PO BID 01/29/19 Allergies/Adverse Reactions: No Known Allergies Allergy (Unverified 01/28/12 11:43) Review of Systems Constitutional: ABSENT: chills, fever(s), headache(s), weight gain, weight loss Eyes: ABSENT: visual disturbances Ears: ABSENT: hearing changes Cardiovascular: ABSENT: chest pain, dyspnea on exertion, edema, orthropnea, palpitations Respiratory: ABSENT: cough, hemoptysis Gastrointestinal: ABSENT: abdominal pain, constipation, diarrhea, hematemesis, hematochezia, nausea, vomiting Genitourinary: ABSENT: dysuria, hematuria Musculoskeletal: PRESENT: as per HPI Integumentary: ABSENT: rash, wounds Neurological: ABSENT: abnormal gait, abnormal speech, confusion, dizziness, focal weakness, syncope Psychiatric: ABSENT: anxiety, depression, homidical ideation, suicidal ideation Endocrine: ABSENT: cold intolerance, heat intolerance, menstrual abnormalities, polydipsia, polyuria Hematologic/Lymphatic: ABSENT: easy bleeding, easy bruising, lymphadenopathy Physical Exam Vital Signs: Temp Pulse Resp BP Pulse Ox 97.4 F 63 16 113/62 98 01/29/19 06:46 01/29/19 06:46 01/29/19 06:46 01/29/19 06:46 01/29/19 06:46 Intake & Output 01/28/19 01/29/19 01/30/19 06:59 06:59 06:59 Weight 73.8 kg General appearance: PRESENT: no acute distress, well-developed, well-nourished Head exam: PRESENT: atraumatic, normocephalic Eye exam: PRESENT: conjunctiva pink, EOMI, PERRLA. ABSENT: scleral icterus Ear exam: PRESENT: normal external ear exam Mouth exam: PRESENT: moist, tongue midline Teeth exam: PRESENT: poor dentation Neck exam: PRESENT: full ROM. ABSENT: carotid bruit, JVD, lymphadenopathy, thyromegaly Respiratory exam: PRESENT: unlabored Cardiovascular exam: PRESENT: RRR. ABSENT: diastolic murmur, rubs, systolic murmur Pulses: PRESENT: normal dorsalis pedis pul, +2 pedal pulses bilateral Vascular exam: PRESENT: normal capillary refill GI/Abdominal exam: PRESENT: normal bowel sounds, soft. ABSENT: distended, guarding, mass, organolmegaly, rebound, tenderness Rectal exam: PRESENT: deferred Musculoskeletal exam: PRESENT: other - Left thumb: Erythema localized around the pulp of the thumb with palpable fluctuance. No tenderness on the flexor sheath. No pain with passive extension. Mild tenderness on the thenar eminence and CMC joint. Previous incision noted without erythema or drainage. No evidence of swelling along the thenar eminence. No sensory deficits. Neurological exam: PRESENT: alert, awake, oriented to person, oriented to place, oriented to time, oriented to situation, CN II-XII grossly intact. ABSENT: motor sensory deficit Psychiatric exam: PRESENT: appropriate affect, normal mood. ABSENT: homicidal ideation, suicidal ideation Skin exam: PRESENT: dry, intact, warm. ABSENT: cyanosis, rash Results Impressions: Finger X-Ray 01/29/19 06:59 IMPRESSION: Radiopaque foreign body in the thumb soft tissues as above. Status: Image reviewed by me - I have reviewed patient's radiographs demonstrate postsurgical changes along the thumb metacarpal base with complete healing. Mild soft tissue swelling volarly with retained metal fragment noted. No osseous changes. Assessment & Plan - Diagnosis (1) Foreign body of left thumb Qualifiers: Encounter type: initial encounter Qualified Code(s): S60.352A - Superficial foreign body of left thumb, initial encounter Is this a current diagnosis for this admission?: Yes Plan: Patient has evidence of foreign body on the left thumb which is contributing to his discomfort. At this point I have recommended the emergency room physician if comfortable proceed with foreign body removal. As for the patient's pain along the thenar eminence there is no evidence of deep space infection feel majority of his pain is likely referred pain from his injury distally. After foreign body removal would recommend p.o. antibiotics and follow-up as an outpatient.
[2019-01-29 08:02] LABS: ANION GAP 6 (5-19); BLOOD UREA NITROGEN 17 mg/dL (7-20); CALCIUM 9.2 mg/dL (8.4-10.2); CARBON DIOXIDE 28 mmol/L (22-30); CHLORIDE 107 mmol/L (98-107); GLUCOSE 84 mg/dL (75-110); POTASSIUM 4.8 mmol/L (3.6-5.0); SODIUM 141.2 mmol/L (137-145)
[2019-01-29 08:03] LABS: ALANINE AMINOTRANSFERASE 18 U/L (21-72); ALBUMIN 3.6 g/dL (3.5-5.0); ALKALINE PHOSPHATASE 116 U/L (38-126); ASPARTATE AMINO TRANSFERASE 25 U/L (17-59); BILIRUBIN,DIRECT 0.3 mg/dL (0.0-0.4); BILIRUBIN,TOTAL 0.4 mg/dL (0.2-1.3); TOTAL PROTEIN 6.9 g/dL (6.3-8.2)
[2019-01-29] MEDS ORDERED: SULFAMETHOXAZOLE/TRIMETHOPRIM 800-160 MG TABLET PO ONE (08:51)
[2019-01-29] MEDS ORDERED: CEPHALEXIN 500 MG CAPSULE PO ONE (08:51)
--- NOTE | 2019-01-29 09:30 | RADIOLOGY REPORT (SQ) ---
EXAM DESCRIPTION: FINGER LEFT COMPLETED DATE/TIME: 01/29/2019 9:10 am REASON FOR STUDY: left thumb FB removed, recheck COMPARISON: 01/29/2019 NUMBER OF VIEWS: Three views. TECHNIQUE: AP, lateral, and oblique images acquired of the left thumb. LIMITATIONS: None. FINDINGS: MINERALIZATION: Normal. BONES: Old healed fracture of the 1st metacarpal transfixed by plate and screws. SOFT TISSUES: Recently noted foreign body distal thumb is no longer identified. OTHER: No other significant finding. IMPRESSION: Foreign body no longer identified. TECHNICAL DOCUMENTATION: JOB ID: [id number] [employer]- All Rights Reserved Reading location - IP/workstation name: [email or web address]
[2019-01-29 09:33] VITALS: BP 120/71
--- NOTE | 2019-01-29 15:11 | ER Document Report ---
Entered by BRITTANY BLANCO SCRIBE 01/29/19 0836 Acting as scribe for:ROCCO AGUILERA DO ED General - General Chief Complaint: Foreign Body Stated Complaint: LEFT THUMB PAIN Time Seen by Provider: 01/29/19 06:54 Primary Care Provider: CAROL RUSSELL DO [ACTIVE STAFF] - Follow up as needed Mode of Arrival: Ambulatory Information source: Patient Notes: Patient is a 53 year old male presenting to the emergency department complaining of left thumb pain and swelling onset 1.5 days ago. Patient states he believes a piece of metal became stuck in his left thumb and he attempted to retrieve it with toenail clippers which exacerbated his pain. He states the pain and swelling is progressively worsening further stating the pain extends to the nickie merlin aspect of his left hand and below the wrist. Denies any fevers Patient states he used to abuse Percocet and is currently taking Merinol for his chronic pain, also occasionally smokes marijuana. TRAVEL OUTSIDE OF THE [place] IN LAST 30 DAYS: No - Related Data Allergies/Adverse Reactions: No Known Allergies Allergy (Unverified 01/28/12 11:43) Past Medical History - General Information source: Patient - Social History Smoking Status: Current Every Day Smoker Cigarette use (# per day): No Chew tobacco use (# tins/day): No Frequency of alcohol use: Social Drug Abuse: Marijuana Family History: Arthritis, CAD, COPD, DM, Hyperlipidemia, Hypertension, Malignancy Patient has suicidal ideation: No Patient has homicidal ideation: No - Past Medical History Cardiac Medical History: Reports: Hx Hypercholesterolemia, Hx Hypertension Pulmonary Medical History: Reports: Hx Asthma, Hx COPD GI Medical History: Reports: Hx Gastroesophageal Reflux Disease Musculoskeletal Medical History: Reports Hx Arthritis, Reports Hx Musculoskeleta l Trauma Psychiatric Medical History: Reports: Hx Anxiety, Hx Bipolar Disorder, Hx Depression Traumatic Medical History: Reports: Hx Fractures - Tib-fib and left thumb Past Surgical History: Reports: Hx Orthopedic Surgery - left wrist surgery, left knee torn miniscus, rotator cuff left and bicep te - Immunizations Immunizations up to date: No Hx Diphtheria, Pertussis, Tetanus Vaccination: Yes - 2011 Review of Systems - Review of Systems Constitutional: No symptoms reported EENT: No symptoms reported Cardiovascular: No symptoms reported Respiratory: No symptoms reported Gastrointestinal: No symptoms reported Genitourinary: No symptoms reported Male Genitourinary: No symptoms reported Musculoskeletal: See HPI Skin: No symptoms reported Hematologic/Lymphatic: No symptoms reported Neurological/Psychological: No symptoms reported -: Yes All other systems reviewed and negative Physical Exam - Vital signs Vitals: Temp Pulse Resp BP Pulse Ox 97.4 F 63 16 113/62 98 01/29/19 06:46 01/29/19 06:46 01/29/19 06:46 01/29/19 06:46 01/29/19 06:46 - Notes Notes: GENERAL: Alert, interacts well. No acute distress. HEAD: Normocephalic, atraumatic. EYES: Pupils equal, round, and reactive to light. Extraocular movements intact. ENT: Oral mucosa moist, tongue midline. NECK: Full range of motion. Supple. Trachea midline. LUNGS: No respiratory distress EXTREMITIES: Moves all 4 extremities spontaneously. There is swelling to the pad of the left thumb, tender to palpation, small amount of fluctuance, no erythema. Tender to palpate the left thenar eminence which causes pain to the dorsal aspect of left thumb extending approximately 2cm below the wrist. NEUROLOGICAL: Alert and oriented x3. Normal speech. PSYCH: Normal affect, normal mood. SKIN: Warm, dry. Course - Re-evaluation Re-evalutation: 01/29/19 07:[address] Russell. Described my concern for deep space infection. Stated he will come see the patient. 01/29/19 15:10 Given the lack of swelling over the thenar eminence or the webspace of the thumb [id number]) does not feel this represents a deep space infection. Advised to the area of swelling, I did this and obtained pus and the piece of metal. Patient will follow-up with Dr. Denis in the office as an outpatient. Dr. Russell did personally come and see and examined this patient. - Vital Signs Vital signs: Temp Pulse Resp BP Pulse Ox 97.5 F 69 16 120/71 99 01/29/19 09:32 01/29/19 09:32 01/29/19 09:32 01/29/19 09:32 01/29/19 09:32 - Laboratory Result Diagrams: 01/29/19 07:25 01/29/19 07:25 Laboratory results interpreted by me: 01/29/19 01/29/19 07:25 07:25 RBC 4.30 L ALT 18 L Procedures - Incision and Drainage left thumb Type: Complex, Single Anesthetic type: 1% Lidocaine - digital block mL's of anesthetic: 5 Blade size: 11 I&D procedure: Chlorprep applied Incision Method: Incision made by scalpel Amount/type of drainage: 2 mL purulent drainage, metallic foreign body removed Notes: 01/29/19 08:46 explored with tweezers using blunt dissection to break up loculations. It does not track below the crease of the IP joint. Discharge - Discharge Clinical Impression: Foreign body of left thumb with infection, Abscess of left thumb Condition: Stable Disposition: HOME, SELF-CARE Additional Instructions: We were able to remove the piece of metal from your thumb. There was infection surrounding it. Please wash the infected area with soap and water twice a day. Do not use other things such as rubbing alcohol or hydrogen peroxide, this will delay healing. Please take your antibiotics as directed until they are gone. He may use ibuprofen 800 mg every 8 hours as needed for pain for the next 5 days. Avoid Tylenol given your liver history. Today your liver enzymes were normal. I have printed out a copy of your labs for you. Return to the emergency department for increasing pain, increasing drainage, difficulty moving her thumb or red streaks moving away from the incision. Prescriptions: Tramadol HCl [Ultram 50 mg Tablet] 50 mg PO Q4HP PRN #2 tab PRN Reason: Cephalexin Monohydrate [Keflex 500 mg Capsule] 1,000 mg PO BID #28 capsule Sulfamethoxazole/Trimethoprim [Bactrim Ds Tablet] 1 each PO BID #14 tablet Referrals: CAROL RUSSELL DO [ACTIVE STAFF] - Follow up as needed I personally performed the services described in the documentation, reviewed and edited the documentation which was dictated to the scribe in my presence, and it accurately records my words and actions.
== END 2019-01-29 09:33 | disposition home or self-care (01) ==
LOC: ER 06:20
DX: S60.352A Superficial foreign body of left thumb, initial encounter (principal); L08.9 Local infection of the skin and subcutaneous tissue, unspecified; M79.645 Pain in left finger(s); X58.XXXA Exposure to other specified factors, initial encounter; F17.200 Nicotine dependence, unspecified, uncomplicated; E78.00 Pure hypercholesterolemia, unspecified; I10 Essential (primary) hypertension; J44.9 Chronic obstructive pulmonary disease, unspecified
CPT/HCPCS: 20103; 99284; 96374; 36415; 85025; 80076; 80048; 73140; A9270 ×2; J3490; J1885